=== PATIENT | female | born 1965 | race Caucasian/White ===

== ENCOUNTER 2018-02-28 14:37 | Emergency (ER) | payer BC ==
[2018-02-28 14:58] VITALS: BP 122/87
--- NOTE | 2018-02-28 15:17 | UC ---
Truncal Trauma HPI - HPI Summary HPI Summary: Pt c/o right lower, lateral rib pain s/p walking into handle of treadmill X 4 weeks ago. Pt states that pain is reproducible and is sometimes difficult to find. - History Of Current Complaint Chief Complaint: UCChestPain Stated Complaint: RIGHT RIB PAIN Time Seen by Provider: 02/28/18 14:47 Hx Obtained From: Patient Hx Last Menstrual Period: 2008 ?: No Onset/Duration: Sudden Onset, Lasting Weeks, Still Present Onset Of Pain: Post Accident Severity Initially: Moderate Severity Currently: Mild Pain Intensity: 2 Mechanism Of Injury: Direct Blow Aggravating Factor(s): Movement Alleviating factor(s): Rest Associated Signs And Symptoms: Positive: Negative - Allergies/Home Medications Allergies/Adverse Reactions: Allergies Allergy/AdvReac Type Severity Reaction Status Date / Time No Known Allergies Allergy Verified 02/28/18 14:59 Home Medications: Home Medications Dulaglutide [Trulicity] 0.75 mg SQ WEEKLY 02/28/18 [History Confirmed 02/28/18] metFORMIN* [Glucophage 500 MG TAB *] 1,000 mg PO QPM 02/28/18 [History Confirmed 02/28/18] PMH/Surg Hx/FS Hx/Imm Hx Previously Healthy: Yes Endocrine History: Diabetes, Thyroid Disease - Surgical History Surgical History: Yes Surgery Procedure, Year, and Place: RIGHT WRIST SURGERY - Family History Known Family History: Positive: Cardiac Disease - Social History Occupation: Employed Full-time Lives: With Family Alcohol Use: Occasionally Substance Use Type: None Smoking Status (MU): Never Smoked Tobacco Have You Smoked in the Last Year: No Review of Systems All Other Systems Reviewed And Are Negative: Yes Constitutional: Positive: Negative Skin: Positive: Negative Eyes: Positive: Negative ENT: Positive: Negative Respiratory: Positive: Negative Cardiovascular: Positive: Negative Gastrointestinal: Positive: Negative Genitourinary: Positive: Negative Motor: Positive: Negative Neurovascular: Positive: Negative Musculoskeletal: Positive: Arthralgia, Myalgia Neurological: Positive: Negative Psychological: Positive: Negative Is Patient Immunocompromised?: No Physical Exam Triage Information Reviewed: Yes Appearance: Well-Appearing Vital Signs: Initial Vital Signs Temp 98.4 F 02/28/18 14:50 Pulse 85 02/28/18 14:50 Resp 18 02/28/18 14:50 BP 122/87 02/28/18 14:50 Pulse Ox 96 02/28/18 14:50 Vital Signs Reviewed: Yes Eye Exam: Normal ENT Exam: Normal Dental Exam: Normal Neck exam: Normal Respiratory Exam: Normal Cardiovascular Exam: Normal Abdominal Exam: Normal Abdomen Description: Positive: Nontender Musculoskeletal Exam: Normal, Other - c/o tenderness at lateral right ribs 7-9. Neurological Exam: Normal Psychological Exam: Normal Skin Exam: Normal Diagnostics - Radiology No standard instances Radiology Interpretation Completed By: Radiologist - IMPRESSION: No definite fracture of the right ribs is noted. Truncal Trauma Course/Dx - Differential Dx/Diagnosis Differential Diagnosis/HQI/PQRI: Chest Wall Contusion, Rib Fracture Provider Diagnosis: Contusion of rib on right side Discharge - Sign-Out/Discharge Documenting (check all that apply): Patient Departure All imaging exams completed and their final reports reviewed: No Studies - Discharge Plan Condition: Stable Disposition: HOME Patient Education Materials: Rib Contusion (ED) Referrals: Dornee Pires MD [Primary Care Provider] - As Soon As Possible - Billing Disposition and Condition Condition: STABLE Disposition: Home - Attestation Statements Provider Attestation: I was available for consult. This patient was seen by the [facility]. The patient was not presented to , seen by or examined by ms -Pablo Copeland MD
== END 2018-02-28 15:53 | disposition home or self-care (01) ==
LOC: UCCORT 14:37
DX: S20.211A Contusion of right front wall of thorax, initial encounter (principal); W21.89XA Striking against or struck by other sports equipment, initial encounter; Y92.9 Unspecified place or not applicable; E11.9 Type 2 diabetes mellitus without complications; Z79.84 Long term (current) use of oral hypoglycemic drugs
CPT/HCPCS: 99211; G0463